=== PATIENT | male | born 1980 | race Caucasian/White ===

== ENCOUNTER 2017-05-03 01:04 | Emergency (ER) | payer OTHER ==
[~2017-05-03] VITALS: Ht 188 cm; Wt 85.7 kg
[~2017-05-03 01:04] MED LIST: FLEXERIL PO; MEDROL PO; MEDROL4 MG/DOSE- PO; NABUMETONE PO; TYLOX1 CAP 5/50 PO; VICODIN 5/500 T1 TAB PO
== END 2017-05-03 02:41 | disposition home or self-care (01) ==
LOC: CED 01:04
DX: S16.1XXA Strain of muscle, fascia and tendon at neck level, initial encounter (principal); F15.10 Other stimulant abuse, uncomplicated; F17.200 Nicotine dependence, unspecified, uncomplicated; X58.XXXA Exposure to other specified factors, initial encounter; Y92.9 Unspecified place or not applicable
CPT/HCPCS: 99283